=== PATIENT | male | born 1985 | race Caucasian/White ===

== ENCOUNTER 2023-03-10 14:53 | Inpatient (IN) | payer BC, SELFPAY ==
[~2023-03-10 14:53] MED LIST: Iopamidol-370 76% 500 ML MDV (1 ML CHARGE) ONE
[2023-03-10] MEDS ORDERED: Acetaminophen 325 MG TAB PO PRN (16:56)
[2023-03-10] MEDS ORDERED: Ondansetron ODT 4 MG TAB PO PRN (16:56)
[2023-03-10] MEDS ORDERED: Ondansetron PF 4 MG/2 ML Vial IVP PRN (16:56)
[2023-03-10] MEDS ORDERED: Morphine 4 MG/ML VIAL SLOW IVP SCH (17:00)
[2023-03-10] MEDS ORDERED: Morphine 4 MG/ML VIAL SLOW IVP PRN (17:00)
[2023-03-10 17:33] LABS: #Monocytes 1.2 thou/uL (0.11-0.59); #Neutrophils 12.7 thou/uL (1.40-6.50); %Basophils 0.2 % (0.0-1.0); %Eosinophils 0.1 % (0.0-10.0); %Lymphocytes 7.3 % (21.0-51.0); %Monocytes 7.8 % (0.0-10.0); %Neutrophils 84.3 % (42.0-75.0); Hematocrit 40.9 % (42.0-52.0); Hemoglobin 13.8 g/dL (14.0-18.0); Mean Corpuscular HGB CONC 33.7 g/dL (32.0-36.0); Mean Corpuscular Hemoglobin 30.6 pg (27.0-31.0); Mean Corpuscular Volume 90.7 fl (78.0-98.0); Mean Platelet Volume 10.8 fL (7.4-10.4); Platelet Count 224 10x3/uL (130-400); RBC Distribution Width 12.1 % (11.5-14.5); Red Blood Cell (RBC) Count 4.51 mill/uL (4.70-6.10); White Blood Cell (WBC) Count 15.1 10x3/uL (4.8-10.8)
[2023-03-10 17:46] VITALS: BMI 31.7
[2023-03-10 18:00] LABS: ALT (SGPT) 327 U/L (8-55); AST (SGOT) 258 U/L (5-34); Albumin 4.4 g/dL (3.5-5.0); Alkaline Phosphatase 89 U/L (40-110); Anion Gap 11 mmol/L (10-20); BUN (Urea Nitrogen) 7 mg/dL (8.9-20.6); Bilirubin, Total 2.9 mg/dL (0.2-1.2); Calc. Creatinine Clearance 166 mL/min (70-130); Calcium 9.5 mg/dL (7.8-10.44); Carbon Dioxide 27 mmol/L (22-29); Chloride 103 mmol/L (98-107); Estimated GFR 115; Globulin 3.1 g/dL (2.4-3.5); Glucose 108 mg/dL (70-105); Magnesium 1.8 mg/dL (1.6-2.6); Phosphorus 2.9 mg/dL (2.3-4.7); Potassium 3.8 mmol/L (3.5-5.1); Protein, Total 7.5 g/dL (6.0-8.3); Sodium 137 mmol/L (136-145)
[2023-03-10] MEDS ORDERED: Pantoprazole 40 MG VIAL IVP SCH (18:00)
[2023-03-10] MEDS ORDERED: FLU VACC QS2023-24(6MOS UP)/PF 60 MCG/0.5 ML SYRINGE IM ONE (18:00)
[2023-03-10] MEDS: Morphine 2 MG/ML VIAL SLOW IVP PRN (21:19)
[2023-03-11] MEDS: Morphine 2 MG/ML VIAL SLOW IVP PRN ×2 (01:42→08:46)
[2023-03-11 05:21] LABS: #Monocytes 1.2 thou/uL (0.11-0.59); #Neutrophils 9.9 thou/uL (1.40-6.50); %Basophils 0.2 % (0.0-1.0); %Eosinophils 0.2 % (0.0-10.0); %Lymphocytes 12.8 % (21.0-51.0); %Monocytes 9.1 % (0.0-10.0); %Neutrophils 77.2 % (42.0-75.0); Hemoglobin 13.8 g/dL (14.0-18.0); Mean Corpuscular HGB CONC 33.7 g/dL (32.0-36.0); Mean Corpuscular Hemoglobin 30.7 pg (27.0-31.0); Mean Corpuscular Volume 91.1 fl (78.0-98.0); Mean Platelet Volume 11.1 fL (7.4-10.4); Platelet Count 214 10x3/uL (130-400); RBC Distribution Width 12.4 % (11.5-14.5); White Blood Cell (WBC) Count 12.9 10x3/uL (4.8-10.8)
[2023-03-11 05:58] LABS: ALT (SGPT) 282 U/L (8-55); AST (SGOT) 166 U/L (5-34); Albumin 4.4 g/dL (3.5-5.0); Alkaline Phosphatase 83 U/L (40-110); Anion Gap 14 mmol/L (10-20); BUN (Urea Nitrogen) 7 mg/dL (8.9-20.6); Bilirubin, Total 1.2 mg/dL (0.2-1.2); Calc. Creatinine Clearance 155 mL/min (70-130); Calcium 9.8 mg/dL (7.8-10.44); Carbon Dioxide 27 mmol/L (22-29); Chloride 103 mmol/L (98-107); Estimated GFR 113; Globulin 3.1 g/dL (2.4-3.5); Glucose 80 mg/dL (70-105); Potassium 3.6 mmol/L (3.5-5.1); Protein, Total 7.5 g/dL (6.0-8.3); Sodium 140 mmol/L (136-145)
[2023-03-11] MEDS ORDERED: Lactated Ringer's 1,000 ML IV SCH (08:45)
[2023-03-11] MEDS ORDERED: Pantoprazole 40 MG VIAL IVP SCH (09:00)
[2023-03-11] MEDS ORDERED: Ketorolac Tromethamine 30 MG/ML VIAL IVP SCH ×2 (13:00→18:00)
[2023-03-11] MEDS ORDERED: LevoFLOXacin 500 mg/D5W 500 MG in Premix Bag 1 BAG IVPB SCH (13:00)
[2023-03-11] MEDS ORDERED: Ibuprofen 600 MG TAB PO PRN (13:34)
[2023-03-11] MEDS ORDERED: traMADol HCl 50 MG TAB PO PRN (13:34)
[2023-03-11] MEDS ORDERED: Acetaminophen 500 MG TAB PO SCH (13:45)
[2023-03-11] MEDS: Lactated Ringer's 1,000 ML IV SCH ×3 (14:27→23:32)
[2023-03-11] MEDS ORDERED: EPINEPHrine 1 MG/ML AMP ONE (14:29)
[2023-03-11] MEDS ORDERED: Bupivacaine PF 0.5% 30 ML VIAL ONE (14:29)
[2023-03-11] MEDS ORDERED: Iopamidol 30 ML ONE (14:30)
[2023-03-11] MEDS ORDERED: Glucagon 1 MG/ML KIT ONE (14:30)
[2023-03-11] MEDS ORDERED: LevoFLOXacin 500 mg/D5W 100 ML BAG ONE (14:45)
[2023-03-11] MEDS ORDERED: SUGAMMADEX SODIUM 200 MG/2 ML VIAL ONE (14:57)
[2023-03-11] MEDS ORDERED: Fentanyl 250 MCG/5 ML VIAL ONE (14:57)
[2023-03-11] MEDS ORDERED: NEOSTIGMINE 3 MG/3 ML SYR 3 MG/3 ML SYRINGE ONE (15:04)
[2023-03-11] MEDS ORDERED: Rocuronium Bromide 10 MG/ML (10ML VIAL) ONE (15:04)
[2023-03-11] MEDS ORDERED: Dexamethasone 20 MG/5 ML VIAL ONE (15:04)
[2023-03-11] MEDS ORDERED: Ondansetron PF 4 MG/2 ML Vial ONE (15:04)
[2023-03-11] MEDS ORDERED: Glycopyrrolate 0.2 MG/ML 5 ML SYRINGE ONE (15:04)
[2023-03-11] MEDS ORDERED: Lidocaine 1% PF 5 ML VIAL ONE (15:04)
[2023-03-11] MEDS ORDERED: PROPOFOL 200 MG/20 ML VIAL ONE (15:04)
[2023-03-11] MEDS ORDERED: Promethazine HCl 25 MG/ML VIAL IM PRN (16:28)
[2023-03-11] MEDS ORDERED: HYDROmorphone 2 MG/ML VIAL SLOW IVP PRN (16:28)
[2023-03-11] MEDS ORDERED: Ondansetron HCl/PF 4 MG/2 ML Vial IVP PRN (16:28)
[2023-03-11] MEDS: Acetaminophen 500 MG TAB PO SCH ×2 (17:33→20:05)
[2023-03-12 07:47] VITALS: BP 134/84; TEMP 98.3
[2023-03-12] MEDS: Acetaminophen 500 MG TAB PO SCH (08:53)
[2023-03-12] MEDS ORDERED: FEBUXOSTAT 80 MG PO SCH (09:00)
[2023-03-12] MEDS ORDERED: Febuxostat 40 MG TAB PO SCH (09:00)
[2023-03-12] MEDS ORDERED: Non-Formulary Item 1 EACH (Omeprazole [Omeprazole] 20 MG Capsule.Dr) PO SCH (09:00)
[2023-03-12] MEDS: Lactated Ringer's 1,000 ML IV SCH (10:11)
== END 2023-03-12 10:53 | disposition home or self-care (01) | DRG 417 ==
LOC: T4-B 16:53 → OBSVTOIN 16:56
PROVIDERS: ADMIT Family Medicine; ATTEND Internal Medicine
PROC: 0FT44ZZ Resection of Gallbladder, Percutaneous Endoscopic Approach (ICD-10-PCS; principal; 2023-03-11)
PROC: BF101ZZ Fluoroscopy of Bile Ducts using Low Osmolar Contrast (ICD-10-PCS; 2023-03-11)
PROC: BF151ZZ Fluoroscopy of Liver using Low Osmolar Contrast (ICD-10-PCS; 2023-03-11)
PROC: 3E033XZ Introduction of Vasopressor into Peripheral Vein, Percutaneous Approach (ICD-10-PCS; 2023-03-11)
DX: K80.12 Calculus of gallbladder with acute and chronic cholecystitis without obstruction (principal); K85.10 Biliary acute pancreatitis without necrosis or infection; M10.9 Gout, unspecified; K21.9 Gastro-esophageal reflux disease without esophagitis; K82.8 Other specified diseases of gallbladder; F17.290 Nicotine dependence, other tobacco product, uncomplicated; F10.10 Alcohol abuse, uncomplicated; Z71.41 Alcohol abuse counseling and surveillance of alcoholic
CPT/HCPCS: 36415; 47532; 71045; 74177; 80053; 83735; 84100; 85025; 88304; C1889; C9113; J0171; J1100; J1611; J1650; J1885; J1956; J2270; J2272; J2405; J2704; J3010; J7120; Q9967; S0020